=== PATIENT | male | born 1980 ===

== ENCOUNTER 2017-01-20 00:51 | Emergency (ER) | payer BC ==
[2017-01-20 01:03] VITALS: TEMP 98.3
[2017-01-20] MEDS ORDERED: Sodium Chloride 0.9% 1,000 ML IV STA (01:45)
[2017-01-20 02:04] LABS: BASO % 0.4 % (0.0-2.0); EOS # 0.1 K/uL (0.0-0.7); EOS % 1.4 % (0.0-4.0); HEMOGLOBIN 14.6 g/dL (12.0-18.0); LYMPH % 18.1 % (20.0-40.0); MEAN CELL VOLUME 87.5 fl (80.0-94.0); MEAN CORPUSCULAR HEMOGLOBIN 28.9 pg (27.0-31.0); MEAN PLATELET VOLUME 8.2 fl (7.2-11.7); MONO # 0.8 K/uL (0.0-0.8); MONO % 7.6 % (0.0-10.0); NEUT # 7.9 K/uL (1.8-7.0); NEUT % 72.5 % (50.0-75.0); NRBC % 0.1 % (0.0-0.0); RBC 5.05 Mil/uL (4.40-5.90); RED CELL DISTRIBUTION WIDTH 14.4 % (11.5-14.5); WHITE BLOOD COUNT 10.9 K/uL (4.8-10.8)
--- NOTE | 2017-01-20 02:12 | ED PDOC ---
HPI: Abdomen Time Seen by Provider: 01/20/17 01:13 Chief Complaint (Nursing): Abdominal Pain Chief Complaint (Provider): Abdominal Pain History Per: Patient History/Exam Limitations: no limitations Onset/Duration Of Symptoms: Hrs (x1), Intermittent Episodes (initially intermittent), Persistent (became persistent) Outside of [place] travel?: No Current Symptoms Are (Timing): Still Present Severity: Severe Location Of Pain/Discomfort: LUQ, LLQ Associated Symptoms: Nausea, Vomiting. denies: Fever, Chills, Back Pain, Urinary Symptoms Additional Complaint(s): 36 year old male presents to ED with complaints of left sided abdominal pain x1 hour and has no past medical history. Patient describes the pain as severe and notes that the pain was originally intermittent before becoming constant. (+) nausea and vomiting (nonbloody, nonbilious). (-) back pain, fever, chills, or urinary symptoms. Patient denies ever experiencing these symptoms previously. PCP: [facility] Past Medical History Reviewed: Historical Data, Nursing Documentation, Vital Signs Vital Signs: Last Vital Signs Temp 98.3 F 01/20/17 00:58 Pulse 72 01/20/17 03:17 Resp 15 01/20/17 03:17 BP 132/68 01/20/17 03:17 Pulse Ox 99 01/20/17 03:17 - Medical History PMH: No Chronic Diseases - Family History Family History: States: No Known Family Hx - Social History Drugs: Denies - Home Medications Home Medications: Ambulatory Orders Medication Instructions Recorded Ibuprofen [Motrin Tab] 600 mg PO Q6 #30 tab 01/20/17 Tamsulosin [Flomax] 0.4 mg PO DAILY #14 cap 01/20/17 traMADol [Ultram] 50 mg PO Q8 #12 tab 01/20/17 - Allergies Allergies/Adverse Reactions: Allergies Allergy/AdvReac Type Severity Reaction Status Date / Time No Known Allergies Allergy Verified 01/20/17 01:00 Review of Systems ROS Statement: Except As Marked, All Systems Reviewed And Found Negative Constitutional: Negative for: Fever, Chills Gastrointestinal: Positive for: Nausea, Vomiting, Abdominal Pain Genitourinary Male: Negative for: Dysuria, Frequency, Incontinence, Hematuria Musculoskeletal: Negative for: Back Pain Physical Exam - Reviewed Nursing Documentation Reviewed: Yes Vital Signs Reviewed: Yes - Physical Exam Appears: Positive for: Non-toxic, No Acute Distress Head Exam: Positive for: ATRAUMATIC Skin: Positive for: Normal Color, Warm, Dry Eye Exam: Positive for: Normal appearance, EOMI, PERRL ENT: Positive for: Normal ENT Inspection Neck: Positive for: Normal, Painless ROM, Supple Cardiovascular/Chest: Positive for: Regular Rate, Rhythm. Negative for: Murmur Respiratory: Positive for: Normal Breath Sounds. Negative for: Respiratory Distress Gastrointestinal/Abdominal: Positive for: Soft, Tenderness (mild TTP to LLQ). Negative for: Normal Exam, Guarding, Rebound Back: Positive for: Normal Inspection. Negative for: L CVA Tenderness, R CVA Tenderness Extremity: Positive for: Normal ROM. Negative for: Deformity Neurologic/Psych: Positive for: Alert, Oriented. Negative for: Motor/Sensory Deficits - Laboratory Results Result Diagrams: 01/20/17 01:55 01/20/17 01:55 - ECG O2 Sat by Pulse Oximetry: 100 (RA) Pulse Ox Interpretation: Normal Medical Decision Making Medical Decision Makin Initial impression: * CT A/P * Labs * Lipase * NS IV * Toradol 30mg IVP * Zofran Inj 4mg IVP * UCx * UA * Re-eval 0222 FINDINGS: Lower thorax: Minimal bibasilar atelectasis or scar. ABDOMEN: Liver: Unremarkable. Gallbladder and bile ducts: The gallbladder is somewhat contracted with no stones. No ductal dilation. Pancreas: There is slight anterior extension of pancreatic tissue at the level of the head without definite peripancreatic induration. No ductal dilation. Spleen: Unremarkable. No splenomegaly. Adrenals: Unremarkable. No mass. Kidneys and ureters: Nonobstructing left renal calculi. Slight left renal sinus edema with mild hydronephrosis and periureteral edema extending to the proximal to mid left ureteral calculus at the L3 level measuring 5 x 5 x 8 mm. Stomach and bowel: Minimal sigmoid diverticulosis without diverticulitis. No obstruction. Appendix: A normal appendix is seen. PELVIS: Bladder: Unremarkable. No stones. Reproductive: Unremarkable as visualized. ABDOMEN and PELVIS: Intraperitoneal space: Unremarkable. No free air. No significant fluid collection. Bones/joints: No acute fracture. No dislocation. Soft tissues: Minimal fat filled umbilical hernia. Vasculature: Unremarkable. No abdominal aortic aneurysm. Lymph nodes: Unremarkable. No enlarged lymph nodes. IMPRESSION: 1. Proximal to mid left ureter a calculus at the L3 level measuring 5 x 5 x 8 mm with secondary obstructive uropathy of the left upper tract. 2. Nonobstructing left renal calculi. 3. Minimal sigmoid diverticulosis without diverticulitis. 0254 Upon re-evaluation, patient is feeling much better and notes that his pain has been relieved. Given a referral for urology and prescription for Tramadol. Risks and benefits of narcotic prescription discuseed with patient. [place] searched: no recent Rx for narcotics given. Patient is stable for discharge home. Scribe Attestation: Documented by Luisa Bradford acting as a scribe for Estiven Murdock MD. Scribe Attestation: All medical record entries made by the Scribe were at my direction and personally dictated by me. I have reviewed the chart and agree that the record accurately reflects my personal performance of the history, physical exam, medical decision making, and the department course for this patient. I have also personally directed, reviewed, and agree with the discharge instructions and disposition. Disposition - Clinical Impression Clinical Impression: Renal colic - Patient ED Disposition Is Patient to be Admitted: No Counseled Patient/Family Regarding: Studies Performed, Diagnosis, Need For Followup, Rx Given - Disposition Referrals: [facility] [Outside] Lennox Reyna MD [Medical Doctor] - Disposition: Routine/Home Disposition Time: 02:54 Condition: STABLE Prescriptions: Ibuprofen [Motrin Tab] 600 mg PO Q6 #30 tab Tamsulosin [Flomax] 0.4 mg PO DAILY #14 cap traMADol [Ultram] 50 mg PO Q8 #12 tab Instructions: Kidney Stones (ED), Renal Colic (ED)
[2017-01-20 02:19] LABS: ALB/GLOB RATIO 1.5 (1.0-2.1); ALBUMIN 4.7 g/dL (3.5-5.0); ALT/SGPT 45 U/L (21-72); AST/SGOT 28 U/L (17-59); BLOOD UREA NITROGEN 18 mg/dl (9-20); GFR AFRICAN-AMERICAN > 60; GFR NON-AFRICAN AMERICAN > 60; LIPASE 76 U/L (23-300)
[2017-01-20 02:56] LABS: SQUAMOUS EPITHIAL < 1 /hpf (0-5); URINE BILIRUBIN NEGATIVE (NEGATIVE); URINE BLOOD LARGE (NEGATIVE); URINE CLARITY CLEAR (Clear); URINE COLOR YELLOW (YELLOW); URINE GLUCOSE (UA) NEG (Normal); URINE HYALINE CAST 0-2 /hpf (0-2); URINE LEUKOCYTE ESTERASE NEG Leu/uL (Negative); URINE NITRATE NEGATIVE (NEGATIVE); URINE PROTEIN 30 mg/dL (NEGATIVE); URINE UROBILINOGEN 0.2-1.0 mg/dL (0.2-1.0)
[2017-01-20 03:18] VITALS: BP 132/68; PULSE 72; RESP 15
[2017-01-20 03:49] VITALS: O2SAT 100
--- NOTE | 2017-01-20 09:18 | CT ---
PROCEDURE: CT Abdomen and Pelvis without intravenous contrast HISTORY: r/o left renal stone COMPARISON: None. TECHNIQUE: CT scan of the abdomen and pelvis was performed without administration of intravenous contrast. Oral contrast was not administered. Coronal and sagittal reformatted images were obtained. Radiation dose: Total exam DLP = 669.51 mGy-cm. This CT exam was performed using one or more of the following dose reduction techniques: Automated exposure control, adjustment of the mA and/or kV according to patient size, and/or use of iterative reconstruction technique. FINDINGS: LOWER THORAX: There is dependent atelectasis in the lung bases. LIVER: The liver is normal in size. There is no intrahepatic biliary ductal dilatation. GALLBLADDER AND BILE DUCTS: No calcified gallstones. PANCREAS: The pancreas is normal in size. No ductal dilatation or calcifications. SPLEEN: The spleen is normal in size. ADRENALS: Both adrenal glands are normal in size without discrete nodule. KIDNEYS AND URETERS: There is a 4 mm obstructing stone in the left proximal ureteral with resultant mild hydronephrosis, mild dilatation of the proximal ureteral, distention of the renal pelvis, edema and enlargement of the left kidney and perinephric inflammatory changes. There are small nonobstructing stones in the left kidney measuring up to mm. The right kidney is normal in size without hydronephrosis or nephrolithiasis. The right ureteral is not dilated. VASCULATURE: No aortic aneurysm. BOWEL: The small bowel loops are normal in caliber. There is moderate amount of stool in the colon. There is mild colonic diverticulosis without CT evidence for acute diverticulitis. APPENDIX: Normal appendix. PERITONEUM: No free fluid. No free air. LYMPH NODES: No enlarged lymph nodes. BLADDER: Grossly normal in appearance. REPRODUCTIVE: Unremarkable. BONES: No acute fracture. OTHER FINDINGS: None. IMPRESSION: Mild left obstructive uropathy resulting from a 4 mm obstructing stone in the proximal ureteral. Small nonobstructing stones in the left kidney measuring up to 4 mm. A preliminary report was provided by [facility].
== END 2017-01-20 03:20 | disposition home or self-care (01) ==
LOC: H.ER 00:51
DX: N20.0 Calculus of kidney (principal)
CPT/HCPCS: 74176; 80053; 81003; 83690; 85025; 87086; 96374; 96375; 99283; J1885; J2405; J7040